=== PATIENT | male | born 1940 | race Caucasian/White ===

== ENCOUNTER 2016-06-16 06:05 | Inpatient (IN) | payer MEDICARE, BC ==
[~2016-06-16] VITALS: Ht 172.7 cm; Wt 53.3 kg
[2016-06-16] MEDS ORDERED: ONDANSETRON 4 MG VIAL ONE (07:35)
[2016-06-16] MEDS ORDERED: SODIUM CHLORIDE 0.9% 1,000 ML ONE (07:36)
[2016-06-16] MEDS ORDERED: CEFTRIAXONE 1 GM VIAL ONE (07:36)
[2016-06-16] MEDS ORDERED: SODIUM CHLORIDE 0.9% 100 ML IV ONE (07:36)
[2016-06-16] MEDS ORDERED: SODIUM CHLORIDE 0.9% 1,000 ML IV SCH (08:50)
[2016-06-16] MEDS ORDERED: SODIUM CHLORIDE 0.9% 1,000 ML IV ONE (08:50)
[2016-06-16] MEDS ORDERED: FAMOTIDINE 20 MG TAB PO SCH (09:00)
[2016-06-16 10:37] VITALS: BP_SYST 132; RESP 18; TEMP 97.1
[2016-06-16 11:00] VITALS: BMI 17.9
[2016-06-16] MEDS ORDERED: MISSING DOSE XX ONE ×2 (11:10→21:55)
[2016-06-16] MEDS: SODIUM BICARB 8.4% 150 ML in DEXTROSE 5% 1,000 ML IV SCH ×2 (12:14→22:38)
[2016-06-16] MEDS: FAMOTIDINE 20 MG TAB PO SCH (12:41)
[2016-06-16 14:58] VITALS: BP_SYST 127; RESP 16; TEMP 97.7
[2016-06-16] MEDS: SALINE FLUSH 10 ML FLUSH SCH (19:25)
[2016-06-16 20:05] VITALS: BP_SYST 124; RESP 18; TEMP 97.4
[2016-06-16] MEDS: ACETAMINOPHEN 325 MG TAB PO PRN (22:07)
[2016-06-17] VITALS (12 sets, daily range): BP systolic 107–146; RESP 16–22; TEMP 97.2–99.7; Ht 172.7 cm; Wt 53.3 kg
[2016-06-17] MEDS: SODIUM CHLORIDE 0.9% FLUSH BAG 500 ML IV SCH (05:58)
[2016-06-17] MEDS: SODIUM BICARB 8.4% 150 ML in DEXTROSE 5% 1,000 ML IV SCH ×2 (06:53→16:53)
[2016-06-17] MEDS: SALINE FLUSH 10 ML FLUSH SCH ×2 (08:00→20:00)
[2016-06-17] MEDS: ONDANSETRON 4 MG VIAL IV PRN (08:01)
[2016-06-17] MEDS: ACETAMINOPHEN 325 MG TAB PO PRN ×3 (08:02→21:27)
[2016-06-17] MEDS: FAMOTIDINE 20 MG TAB PO SCH (10:09)
[2016-06-17] MEDS ORDERED: MISSING DOSE XX ONE (15:35)
[2016-06-17] MEDS: SALINE FLUSH 10 ML FLUSH PRN (17:12)
[2016-06-17] MEDS: CEFTRIAXONE 1 GM in SODIUM CHLORIDE 0.9% 50 ML IV SCH (17:12)
[2016-06-18 00:28] VITALS: BP_SYST 107; RESP 18; TEMP 98
[2016-06-18] MEDS: ACETAMINOPHEN 325 MG TAB PO PRN ×3 (01:38→12:15)
[2016-06-18] MEDS ORDERED: MISSING DOSE XX ONE ×3 (01:45→15:00)
[2016-06-18] MEDS: SODIUM BICARB 8.4% 150 ML in DEXTROSE 5% 1,000 ML IV SCH (02:03)
[2016-06-18 04:09] VITALS: BP_SYST 118; RESP 18; TEMP 98.3
[2016-06-18] MEDS: SODIUM CHLORIDE 0.9% FLUSH BAG 500 ML IV SCH (05:05)
[2016-06-18] MEDS: ONDANSETRON 4 MG VIAL IV PRN ×3 (05:26→22:14)
[2016-06-18 07:13] VITALS: BP_SYST 129; RESP 16; TEMP 98.1
[2016-06-18] MEDS: SALINE FLUSH 10 ML FLUSH SCH ×2 (10:04→21:25)
[2016-06-18] MEDS: CEFTRIAXONE 1 GM in SODIUM CHLORIDE 0.9% 50 ML IV SCH (10:05)
[2016-06-18] MEDS: FAMOTIDINE 20 MG TAB PO SCH (10:05)
[2016-06-18 11:01] VITALS: BP_SYST 121; RESP 16; TEMP 98.1
[2016-06-18] MEDS ORDERED: MAALOX 30 ML, LIDOCAINE 2% VISC 10 ML PO ONE ×2 (12:25)
[2016-06-18 15:17] VITALS: BP_SYST 123; RESP 16; TEMP 98.4
[2016-06-18] MEDS: DOCUSATE SOD 100 MG CAP PO SCH ×2 (16:03→21:26)
[2016-06-18] MEDS: POLYETHYLENE GLYCOL 17 GM PACKET PO SCH (16:05)
[2016-06-18] MEDS ORDERED: LIDOCAINE 2% JELLY GLYDO 6 ML TOPICAL ONE (17:00)
[2016-06-18] MEDS: SALINE FLUSH 10 ML FLUSH PRN (17:56)
[2016-06-18 19:34] VITALS: BP_SYST 122; RESP 18; TEMP 98.4
[2016-06-19 00:03] VITALS: BP_SYST 128; RESP 18; TEMP 98.3
[2016-06-19] MEDS: SODIUM CHLORIDE 0.9% FLUSH BAG 500 ML IV SCH (00:05)
[2016-06-19 03:29] VITALS: BP_SYST 116; RESP 18; TEMP 98.4
[2016-06-19] MEDS: ONDANSETRON 4 MG VIAL IV PRN (06:19)
[2016-06-19 07:25] VITALS: BP_SYST 126; RESP 18; TEMP 98
[2016-06-19] MEDS: DOCUSATE SOD 100 MG CAP PO SCH ×2 (09:00→20:18)
[2016-06-19] MEDS: POLYETHYLENE GLYCOL 17 GM PACKET PO SCH (09:00)
[2016-06-19] MEDS: SALINE FLUSH 10 ML FLUSH SCH ×2 (09:06→20:18)
[2016-06-19] MEDS: FAMOTIDINE 20 MG TAB PO SCH (09:06)
[2016-06-19] MEDS: CEFTRIAXONE 1 GM in SODIUM CHLORIDE 0.9% 50 ML IV SCH (09:08)
[2016-06-19 11:58] VITALS: BP_SYST 144; RESP 18; TEMP 97.9
[2016-06-19] MEDS: MAGNESIUM SULF 1 GM/100 ML 100 ML IV SCH ×2 (12:00→12:28)
[2016-06-19 15:55] VITALS: BP_SYST 141; RESP 16; TEMP 97.9
[2016-06-19 19:38] VITALS: BP_SYST 136; RESP 20; TEMP 98.5
== END 2016-06-19 23:54 | disposition short-term general hospital (02) | DRG 683 ==
LOC: ENRESERVDT → ENRESERVTM → ER 06:05 → EMR 08:48 → ENPENDDIS 08:48 → 4NT 10:35
PROVIDERS: ADMIT Internal Medicine; ATTEND Internal Medicine
DX: N17.9 Acute kidney failure, unspecified (principal); N39.0 Urinary tract infection, site not specified; E87.2 Acidosis; E87.5 Hyperkalemia; N13.30 Unspecified hydronephrosis; Z85.51 Personal history of malignant neoplasm of bladder; N18.9 Chronic kidney disease, unspecified; E86.0 Dehydration; B96.20 Unspecified Escherichia coli [E. coli] as the cause of diseases classified elsewhere; B96.4 Proteus (mirabilis) (morganii) as the cause of diseases classified elsewhere; D63.1 Anemia in chronic kidney disease; Z66 Do not resuscitate
CPT/HCPCS: 36415; 36430; 76770; 80048; 80053; 81001; 82040; 82330; 82607; 82728; 82746; 83036; 83090; 83540; 83615; 83690; 83735; 83921; 83970; 84100; 84439; 84443; 84466; 84550; 85025; 86850; 86900; 86901; 86923; 87077; 87088; 87186; 96361; 96365; 96366; 96375; 99223; 99232; 99233; 99239